=== PATIENT | male | born 1950 | race Caucasian/White ===

== ENCOUNTER 2019-09-04 13:41 | Outpatient (CLI) | payer MEDICARE, OTHER, SELFPAY ==
--- NOTE | ~2019-09-04 | CT_ITS ---
EXAMINATION: CT abdomen pelvis w con DATE: 09/04/2019 15:00 INDICATION: Inguinal pain. No history of malignancy. TECHNIQUE: Computed tomography (CT) of the abdomen and pelvis was performed with 100 cc Omnipaque 350 intravenous contrast. The dose-length product was 358.56 mGy-cm. Automated exposure control and iter ative reconstruction technique were employed. COMPARISON: No prior studies for comparison. FINDINGS: Lung bases are unremarkable. No significant pleural or pericardial effusion. Heart size is normal. There are at least 6 hypovascular masses of the liver involving both lobes, largest anterior to the IVC measuring approximately 4.3 x 3.4 cm, most likely metastases. The spleen, pancreas, adrena l glands and kidneys are unremarkable. Gallbladder is present. Nonobstructive bowel gas pattern. No f ocal bowel abnormalities. Bladder wall is thickened. Enlarged prostate gland. No free air or free fluid. There is lumbar spondylosis at L4-5 and L5-S1. There is a lytic destructiv e lesion of the left superior pubic ramus and pubic symphysis with a smaller lytic defect of the left inferior pubic ramus. IMPRESSION: 1. Hypovascular masses of the liver, largest left hepatic lobe anterior to the IVC measuring 4.3 cm m aximum axial dimension. These masses are highly suspicious for metastatic disease. 2: Lytic destructive lesions of the left superior pubic ramus and pubic symphysis, also suspicious f or metastatic disease. Reviewed, dictated and finalized at location A. IMPRESSION: 1. Hypovascular masses of the liver, largest left hepatic lobe anterior to the IVC measuring 4.3 cm maximum axial dimension. These masses are highly suspiciou s for metastatic disease. 2: Lytic destructive lesions of the left superior pubic ramus and pubic symphy sis, also suspicious for metastatic disease.
[2019-09-04 14:42] LABS: Estimated Glomerular Filt Rate > 60
== END 2019-09-04 13:42 | disposition home or self-care (01) ==
LOC: ANHIMG 13:49
PROVIDERS: PCP Internal Medicine; Visit Provider Internal Medicine
DX: R10.2 Pelvic and perineal pain (principal); R16.0 Hepatomegaly, not elsewhere classified; M89.9 Disorder of bone, unspecified
CPT/HCPCS: 36415; 74177; Q9967

== ENCOUNTER → 2019-10-05 00:25 | Day surgery (SDC) | payer MEDICARE, OTHER, SELFPAY ==
[2019-10-01 12:09] VITALS: BMI 23.7
[2019-10-05] VITALS (8 sets, daily range): BP systolic 130–143; BP diastolic 66–77; PULSE 90–110; RESP 13–24; O2SAT 96–99
--- NOTE | ~2019-10-05 | US_ITS ---
EXAMINATION: US biopsy liver DATE: 10/05/2019 10:54 INDICATION: Liver mass. TECHNIQUE: The procedure including the risks, benefits, and alternatives was discussed with the patie nt. Risks discussed included bleeding and infection. The patient understood the risks and agreed to p roceed. The skin overlying the liver was prepped and draped in usual sterile fashion. Anesthetic was administered with 1% lidocaine subcutaneously. An 18 gauge core biopsy needle was then used to obta in 3 core biopsy specimens under continuous sonographic guidance. The entry site was cleaned and dres sed. There were no immediate complications. FINDINGS: Ultrasound images demonstrate the needle in a 5.0 x 3.0 cm hypoechoic mass in left hepatic lobe. There are multiple liver masses. IMPRESSION: 1. Ultrasound-guided core needle biopsy of a liver mass. Reviewed, dictated and finalized at location A.
[2019-10-05 09:10] LABS: Platelet Count Result 546 k/mm3 (150-375)
[2019-10-05 09:17] LABS: INR 1.1; Prothrombin Time 14.3 Seconds (11.1-14.7)
--- NOTE | 2019-10-05 12:24 | SUR.PHASEII ---
contacted Dr Castellon, informed that pt is doing well and asked if he needed to see pt. Dr Castellon stated he will not be in to see pt and pt can leave at [phone]
== END ==
PROVIDERS: PCP Internal Medicine; Visit Provider Radiology Diagnostic Radiology
DX: C78.7 Secondary malignant neoplasm of liver and intrahepatic bile duct (principal)
CPT/HCPCS: 36415; 47000; 76942; 81210; 81235; 81275; 81276; 85049; 85610; 88271; 88274; 88307; 88313; 88342; 88360; 88381; J7040